=== PATIENT | female | born 1980 | race Two or more races ===

== ENCOUNTER → 2020-06-16 | Emergency (ER) | payer SELFPAY ==
[~2020-06-16] VITALS: Ht 154.9 cm; Wt 66.2 kg
[2020-06-16 13:27] VITALS: BP 111/74
== END | disposition left against medical advice (07) ==
LOC: ER 13:16
DX: F41.9 Anxiety disorder, unspecified (principal); Z53.21 Procedure and treatment not carried out due to patient leaving prior to being seen by health care provider